=== PATIENT | male | born 2000 | race Caucasian/White ===

== ENCOUNTER → 2020-07-22 | Outpatient (CLI) | payer OTHER ==
[~2020-07-22] MED LIST: HYDR-4226 PO
== END ==
LOC: LABNPT 05:42
PROVIDERS: ATTEND Family Medicine
DX: Z20.828 Contact with and (suspected) exposure to other viral communicable diseases (principal)
CPT/HCPCS: 87635

== ENCOUNTER 2021-05-22 10:54 | Emergency (ER) | payer OTHER ==
[~2021-05-22] VITALS: Ht 185.5 cm; Wt 113.6 kg
--- NOTE | 2021-05-22 11:53 | ED Fall/Injury ---
General Stated Complaint: L ANKLE PAIN Source: patient Exam Limitations: no limitations History of Present Illness Date Seen by Provider: May 22, 2021 Time Seen by Provider: 11:45 Initial Comments Patient is a 21-year-old male who presents to the emergency department today with a chief complaint of left lateral ankle pain. Patient states that he was walking down a slippery wet hill when he slipped and fell onto his left ankle. Patient states he felt and heard a "pop". He states that he does not have any other complaints of injury to the knee hip or pelvis. He did not hit his head, he did not have loss of consciousness. Patient states that the injury occurred at approximately 1020 this morning. All other review of systems reviewed and negative except as stated above. Occurred: just prior to arrival Injuries/Pain Location: lower extremity (Left ankle) Context: slipped Loss of Consciousness: no loss of consciousness Modifying Factors: Improves With Cold Therapy Associated Symptoms (Fall): Denies Symptoms Allergies and Home Medications Allergies Coded Allergies: No Known Drug Allergies (Unverified , 05/05/16) Home Medications Hydrocodone/Acetaminophen 1 Each Tablet, 1 EACH PO Q4H PRN for SEVERE PAIN Prescribed by: TOI PATEL on 05/05/16 1007 Patient Home Medication List Home Medication List Reviewed: Yes Review of Systems Review of Systems Constitutional: see HPI Eyes: No Symptoms Reported Ears, Nose, Mouth, Throat: no symptoms reported Respiratory: no symptoms reported Cardiovascular: no symptoms reported Gastrointestinal: no symptoms reported Musculoskeletal: joint pain (Left ankle, lateral aspect) Skin: no symptoms reported All Other Systems Reviewed Negative Unless Noted: Yes Past Pxayjtj-Qekjuu-Xnhwpp Hx Past Medical History Reproductive Disorders: No Physical Exam Vital Signs Vital Signs - First Documented 05/22/21 11:33 Temp 37.3 Pulse 95 Resp 18 B/P (MAP) 150/88 (108) Pulse Ox 98 O2 Delivery Room Air Capillary Refill : Height, Weight, BMI Height: 6'1" Weight: 160lbs. oz. 72.206667ug; 25.06 BMI Method:Estimated General Appearance: WD/WN, no apparent distress HEENT: PERRL/EOMI Neck: normal inspection Cardiovascular: regular rate, rhythm Respiratory: lungs clear, normal breath sounds, no respiratory distress, no accessory muscle use Extremities: normal range of motion, other (Patient has significant swelling and noted over the lateral malleolus of the left ankle. Quite tender to palpation. Ankle joint is stable. He does have increased pain with eversion of the left foot.) Neurologic/Psychiatric: no motor/sensory deficits, alert, normal mood/affect, oriented x 3 Skin: normal color, warm/dry Progress/Results/Core Measures Results/Orders My Orders Orders - CHARLEY SHETTY MD Ankle, Left, 3 Views (05/22/21 11:50) Ibuprofen Tablet (Motrin Tablet) (05/22/21 12:00) Medications Given in ED Current Medications Medications Dose Ordered Sig/Braulio Route Start Time Stop Time Status Last Admin Dose Admin Ibuprofen 600 mg ONCE ONCE PO 05/22/21 12:00 05/22/21 12:01 DC 05/22/21 12:15 600 MG Vital Signs/I&O 05/22/21 11:33 Temp 37.3 Pulse 95 Resp 18 B/P (MAP) 150/88 (108) Pulse Ox 98 O2 Delivery Room Air Departure Impression Primary Impression: Moderate left ankle sprain Qualified Codes: S93.402A - Sprain of unspecified ligament of left ankle, initial encounter Disposition: HOME, SELF-CARE Condition: Stable Departure-Patient Inst. Decision time for Depature: 12:54 Referrals: OMAR ULRICH MD (PCP) Primary Care Physician Patient Instructions: Ankle Sprain ED Add. Discharge Instructions: Keep a compression wrap on your left ankle for the next 3 days. Elevate and ice the ankle 4 times daily for the next 1 to 2 days. Ice it 20 minutes at a time. Kvvc-pni-lhiftga ibuprofen, 3 pills which is 600 mg every 6-8 hours with food as needed for pain and swelling. Crutch walking with toe-touch weightbearing as tolerated for the next 3 days. Follow-up with your primary care physician. Return to the emergency room for any new, concerning or emergent complaints. CHARLEY SHETTY MD May 22, 2021 11:53
[2021-05-22] MEDS ORDERED: IBUPROFEN 600 MG (MOTRIN) TAB PO ONE (12:00)
--- NOTE | 2021-05-22 12:56 | Diagnostic Imaging Report ---
EXAMINATION: Left ankle radiographs, 3 views. COMPARISON: None. HISTORY: 21-year-old male, left ankle injury and ankle pain. FINDINGS: There is no acute fracture. The alignment of the ankle mortise is unremarkable. There is no tibiotalar joint effusion. There is an elongated posterior process of the talus as a normal variant finding. There is soft tissue swelling adjacent of the lateral malleolus. IMPRESSION: 1. Soft tissue swelling adjacent to the lateral malleolus without acute bony abnormality. Dictated by: Dictated on workstation # [id number]
[2021-05-22 13:13] VITALS: BP 138/80
== END 2021-05-22 13:20 | disposition home or self-care (01) ==
LOC: EDUNIT# 10:54 → ER 10:57
DX: S93.402A Sprain of unspecified ligament of left ankle, initial encounter (principal); W01.0XXA Fall on same level from slipping, tripping and stumbling without subsequent striking against object, initial encounter
CPT/HCPCS: 73610